=== PATIENT | female | born 1970 | race African-American/Black ===

== ENCOUNTER 2016-12-07 15:55 | Emergency (ER) | payer MEDICAID ==
[~2016-12-07] VITALS: Ht 175.3 cm; Wt 120.0 kg
[~2016-12-07 15:55] MED LIST: NAPR500T PO; PRIN10TA PO; ROBA750T PO
[2016-12-07 15:58] VITALS: BP 145/78; PULSE 64; RESP 20; TEMP 97.8; O2SAT 100
[2016-12-07] MEDS ORDERED: AMOX875T PO (16:31)
[2016-12-07] MEDS ORDERED: TRIA0.1L TOPICAL (16:31)
[2016-12-07] MEDS ORDERED: MEDR4PAK PO (16:31)
--- NOTE | 2016-12-07 16:32 | PD ---
HPI Chief Complaint: Skin Problem Time Seen by Provider: 16:30 Travel History International Travel<30 days: No Contact w/Intl Traveler<30days: No Traveled to known affect area: No History of Present Illness HPI Patient is a 46-year-old female who presents emergency evaluation of a rash as well as sinus pressure. Patient states the rash has impressive for approximately one week, she states that a chief. She denies any wheezing or shortness of breath. She also reports nasal congestion, sinus pressure. She denies any headaches, sore throat, fever, chills, nausea, vomiting, chest pain. She has an appointment with her primary doctor on but the itching wasn't tolerated so she came to the emergency department. PFSH Past Medical History Hx Anticoagulant Therapy: No Cardiovascular Problems: Yes (heart murmur) Chemotherapy: No Cerebrovascular Accident: No Diabetes: No Hypertension: Yes Respiratory: No : 4 Para: 3 Miscarriage: 1 Past Surgical History Hysterectomy: No Social History Alcohol Use: No Tobacco Use: No Substance Use: No Allergies-Medications (Allergen,Severity, Reaction): Coded Allergies: No Known Allergies (Verified , 12/07/16) Reported Meds & Prescriptions Reported Meds & Active Scripts Active Triamcinolone Topical (Triamcinolone Acetonide) 0.1% Lotn 1 Applic TOPICAL BID Medrol Dosepak (Methylprednisolone) 4 Mg Dspk 4 Mg PO DIRECTED Per Pharmacist direction Amoxicillin 875 Mg Tab 875 Mg PO BID 10 Days Robaxin (Methocarbamol) 750 Mg Tab 750 Mg PO QID PRN 2 tabs QID for 2 days, then 1 tab QID thereafter Naproxen 500 Mg Tab 500 Mg PO BID Reported Prinivil (Lisinopril) 10 Mg Tab 10 Mg PO DAILY Review of Systems Except as stated in HPI: all other systems reviewed are Neg General / Constitutional: No: Fever, Chills HENT: Positive: Rhinitis, Congestion, Other (sinus pressure), No: Headaches Cardiovascular: No: Chest Pain or Discomfort Respiratory: No: Shortness of Breath Gastrointestinal: No: Nausea, Vomiting, Abdominal Pain Skin: Positive Rash, Positive Itching, Positive Dryness Physical Exam Narrative GENERAL: Morbidly obese, Well-nourished, well-developed patient. SKIN: Warm and dry. Scattered dry, flaky, hyperpigmented macular lesions on back, bilateral thighs, abdomen, arms. HEAD: Normocephalic. Tenderness to palpation of ethmoid and maxillary sinuses. EYES: No scleral icterus. No injection or drainage. NECK: Supple, trachea midline. No JVD or lymphadenopathy. CARDIOVASCULAR: Regular rate and rhythm without murmurs, gallops, or rubs. RESPIRATORY: Breath sounds equal bilaterally. No accessory muscle use. GASTROINTESTINAL: Abdomen soft, non-tender, nondistended. MUSCULOSKELETAL: No cyanosis, or edema. BACK: Nontender without obvious deformity. No CVA tenderness. Data Data Last Documented VS Vital Signs Date Time Temp Pulse Resp B/P Pulse Ox O2 Delivery O2 Flow Rate FiO2 12/07/16 15:58 97.8 64 20 145/78 100 Room Air MDM Medical Decision Making Medical Screen Exam Complete: Yes Emergency Medical Condition: Yes Interpretation(s) Vital Signs Date Time Temp Pulse Resp B/P Pulse Ox O2 Delivery O2 Flow Rate FiO2 12/07/16 15:58 97.8 64 20 145/78 100 Room Air Differential Diagnosis Contact dermatitis versus eczema versus folliculitis versus scabies versus sinusitis versus viral URI versus allergic rhinitis Narrative Course Patient is a 46 year female who presented to emergency for evaluation of a rash as well as sinus pressure. Rash appears most consistent with nummular eczema. Discussed with patient that her symptoms regarding her sinusitis is likely viral , she was encouraged to continue symptom management however she is adamant about receiving an antibiotic. Patient encouraged to continue with Zyrtec which she only takes on an as-needed basis, she was encouraged to take it daily for best results, she was also encouraged to continue use of fluticasone nasal spray. She is encouraged to keep her appointment with Dr. Major on for follow-up. She was encouraged to return to emergency department for any new or worsening symptoms. Patient verbalized understanding of these instructions. Patient is stable for discharge. Diagnosis Primary Impression: Eczema Qualified Code: L30.9 - Eczema, unspecified type Additional Impression: Sinusitis Qualified Code: J01.90 - Acute sinusitis, recurrence not specified, unspecified location Referrals: Beverley Major MD 3 days Patient Instructions: General Instructions Additional Instructions: Use medications as directed Follow-up with Dr. Major on as scheduled Return to emergency department for any new or worsening symptoms Med/Other Pt SpecificInfo: Prescription(s) given Scripts Triamcinolone Topical 0.1% Lotn1 Applic TOPICAL BID #60 ML Ref 0 Prov:Angela Goodman 12/07/16 Methylprednisolone Dosepak (Medrol Dosepak)4 Mg Dspk4 Mg PO DIRECTED #1 DSPK Ref 0 Per Pharmacist direction Prov:Angela Goodman 12/07/16 Amoxicillin 875 Mg [id number] Mg PO BID 10 Days Ref 0 Prov:Angela Goodman 12/07/16 Disposition: 01 DISCHARGE HOME Condition: Stable Angela Goodman Dec 07, 2016 16:32
[2016-12-07] MEDS ORDERED: AMLO10 PO (16:36)
[2016-12-07] MEDS ORDERED: FLUT1SPR9 EACH NARE (16:36)
[2016-12-07] MEDS ORDERED: LISI10TA3 PO (16:36)
[2016-12-12] MEDS ORDERED: LISI10TA3 PO (10:01)
[2016-12-12] MEDS ORDERED: SELE2.5%T TOPICAL (10:10)
[2016-12-12] MEDS ORDERED: AMLO10 PO (10:12)
[2016-12-12] MEDS ORDERED: FLUT1SPR9 EACH NARE (10:12)
[2017-02-03] MEDS ORDERED: PARO12.5 PO ×2 (10:18→16:03)
[2017-02-03] MEDS ORDERED: SELE2.5%T TOPICAL (16:03)
[2017-02-06] MEDS ORDERED: PARO1TAB71 PO (15:43)
[2017-04-29] MEDS ORDERED: LISI10TA3 PO (10:13)
== END 2016-12-07 20:35 | disposition home or self-care (01) ==
LOC: NEPB 15:55
DX: L30.9 Dermatitis, unspecified (principal); J01.90 Acute sinusitis, unspecified; I10 Essential (primary) hypertension
CPT/HCPCS: 99283

== ENCOUNTER 2017-07-24 13:01 | Day surgery (SDC) | payer MEDICAID ==
[~2017-07-24 13:01] MED LIST changes: +AMLO10 PO; +FLUT1SPR9 EACH NARE; +LISI10TA3 PO; -NAPR500T PO; +PARO1TAB71 PO; -PRIN10TA PO; -ROBA750T PO; +SELE2.5%T TOPICAL; +TRIA0.1L TOPICAL
[2017-07-24] MEDS ORDERED: LIDOCAINE HCL 1% 20 ML VIAL ONE (14:28)
[2017-07-24 14:30] VITALS: BP 137/94; PULSE 59; RESP 20; TEMP 98; O2SAT 94
[2017-07-24 14:45] VITALS: BP 128/88; PULSE 71; RESP 20; O2SAT 94
--- NOTE | 2017-07-24 14:54 | RADRPT ---
EXAM DATE/TIME: 07/24/2017 13:36 [place] COMPARISON: No previous studies available for comparison. EXTERNAL COMPARISON: [facility], Ultrasound thyroid, Jul 02 2017. INDICATIONS : Left thyroid nodule. MEDICAL HISTORY : Hypertension. SURGICAL HISTORY : Gastric sleeve. ENCOUNTER: Initial ACUITY: 3 weeks PAIN SCORE: 0/10 LOCATION: Left neck ORGAN: Left thyroid lobe SPECIMENS: Four fine needle aspirate(s) submitted for pathologic evaluation. DEVICE: 22 gauge needle Post procedure scanning reveals no hematoma or other complication. The possibility does exist that the tissue obtained will be non-diagnostic. If the sample is non-bruna gnostic a repeat biopsy or surgical biopsy may need to be performed. TECHNIQUE: 1. Ultrasound guidance for needle biopsy. 2. Needle biopsy. The risks, benefits, and alternatives to ultrasound guided needle biopsy were explained to the patien t in detail including the risk of bleeding and infection. Written and verbal informed consent was ob tained. With the patient on the ultrasound table, images were obtained. Overlying skin was prepped and drape d in the usual sterile fashion and Lidocaine was utilized as a local anesthetic. A needle was advanced into the identified target and the number of specimens as above obtained and roldan bmitted for pathologic evaluation. The patient tolerated the procedure well and left the ultrasound suite in stable condition. CONCLUSION: Uncomplicated ultrasound guided needle biopsy. Malik Francois MD on July 24, 2017 at 14:52 Board Certified Radiologist. This report was verified electronically.
[2017-08-25] MEDS ORDERED: AMLO10 PO (13:05)
== END 2017-07-24 14:50 | disposition home or self-care (01) ==
LOC: HRAD 13:01 → HRIP 13:03 → EDSTATUS 13:30 → HRAD 14:50
PROVIDERS: ATTEND Nurse Practitioner Family
DX: E04.1 Nontoxic single thyroid nodule (principal); R01.1 Cardiac murmur, unspecified
CPT/HCPCS: 10022; 76942; 88172; 88173

== ENCOUNTER 2018-05-05 08:43 | Emergency (ER) | payer MEDICAID ==
[~2018-05-05] VITALS: Ht 172.7 cm; Wt 140.0 kg
[~2018-05-05 08:43] MED LIST changes: +PARO10TA3 PO; -PARO1TAB71 PO
[2018-05-05 08:47] VITALS: BP 135/90; PULSE 95; RESP 20; TEMP 97.5; O2SAT 98
[2018-05-05] MEDS ORDERED: SODIUM CHLOR 0.9% 1000 ML INJ 1,000 ML IV SCH (09:01)
[2018-05-05 09:10] VITALS: O2SAT 99
[2018-05-05] MEDS ORDERED: SODIUM CHLORIDE 0.9% FLUSH 10 ML FLUSH IV FLUSH PRN (09:15)
[2018-05-05] MEDS ORDERED: PROMETHAZINE INJ 25 MG/ML VIAL IM ONE (09:15)
[2018-05-05] MEDS ORDERED: PANT40TA3 PO (09:16)
[2018-05-05] MEDS ORDERED: LEVO25TA4 PO (09:16)
--- NOTE | 2018-05-05 09:23 | PD ---
HPI Chief Complaint: GI Complaint Time Seen by Provider: 09:01 Travel History International Travel<30 days: No Contact w/Intl Traveler<30days: No Traveled to known affect area: No History of Present Illness HPI Patient is a 48-year-old female presenting to emerge from for evaluation of nausea, vomiting and epigastric abdominal pain. Patient states it started 3 days ago, she reports that when she tries to eat or drink anything it joy and causes her to feel nauseated. She reports the pain in her abdomen is 8 out of 10, cramping and gnawing in nature. Patient states she has been to her primary doctor who provided her with a prescription for pantoprazole, she had been on omeprazole previously. She states that her primary doctor is scheduling her for an EGD but this is not scheduled yet. She has a history of gastric sleeve several years ago. She denies any change in her bowel habits, chest pain, shortness of breath, dysuria. Symptom onset was gradual, symptoms are moderate in nature. There are no alleviating factors, pain is constant and worse with food intake or fluid intake. PFSH Past Medical History Hx Anticoagulant Therapy: No Cardiovascular Problems: Yes (heart murmur) Hypertension: Yes Tetanus Vaccination: < 5 Years ?: Not : 4 Para: 3 Miscarriage: 1 Past Surgical History Abdominal Surgery: Yes (gastric sleeve) Hysterectomy: No Social History Alcohol Use: No Tobacco Use: No Substance Use: No Allergies-Medications (Allergen,Severity, Reaction): Coded Allergies: No Known Allergies (Verified Adverse Reaction, Unknown, 05/05/18) Reported Meds & Prescriptions Reported Meds & Active Scripts Active Lisinopril 10 Mg Tab 10 Mg PO BID Norvasc (Amlodipine Besylate) 10 Mg Tab 10 Mg PO DAILY Paroxetine (Paroxetine HCl) 10 Mg Tab 10 Mg PO DAILY Selenium Sulfide Topical 2.5% (Selenium Sulfide) 2.5 % Lotn 1 Applic TOPICAL BID Apply lotion to the affected area and lather with small amounts of water , leave on skin for 10 mins, then rinse thorougly. Apply every day for 7 days. Flonase Allergy Relief Children Nasal [place] (Fluticasone Nasal [place]) 50 Mcg/ Act [place] 2 [place] EACH NARE DAILY 50 mcg/spray Triamcinolone Topical (Triamcinolone Acetonide) 0.1% Lotn 1 Applic TOPICAL BID Reported Levothyroxine (Levothyroxine Sodium) 25 Mcg Tab 25 Mcg PO DAILY Pantoprazole (Pantoprazole Sodium) 40 Mg Tab 40 Mg PO DAILY Review of Systems Except as stated in HPI: all other systems reviewed are Neg Gastrointestinal: Positive: Nausea, Vomiting, Abdominal Pain, Indigestion Physical Exam Narrative GENERAL: Overweight, well-developed, alert -Cong[place]ese female. Presenting in no acute distress. SKIN: Warm and dry. HEAD: Atraumatic. Normocephalic. EYES: Pupils equal and round. No scleral icterus. No injection or drainage. ENT: No nasal bleeding or discharge. Mucous membranes pink and moist. NECK: Trachea midline. No JVD. CARDIOVASCULAR: Regular rate and rhythm. 2/6 systolic murmur. RESPIRATORY: No accessory muscle use. Clear to auscultation. Breath sounds equal bilaterally. GASTROINTESTINAL: Abdomen soft, mildly tender to palpation epigastric region, nondistended. Hepatic and splenic margins not palpable. Positive bowel sounds, no rebound, no guarding. MUSCULOSKELETAL: Extremities without clubbing, cyanosis, or edema. No obvious deformities. NEUROLOGICAL: Awake and alert. No obvious cranial nerve deficits. Motor grossly within normal limits. Five out of 5 muscle strength in the arms and legs. Normal speech. PSYCHIATRIC: Appropriate mood and affect; insight and judgment normal. Data Data Last Documented VS Vital Signs Date Time Temp Pulse Resp B/P (MAP) Pulse Ox O2 Delivery O2 Flow Rate FiO2 05/05/18 09:10 99 05/05/18 08:47 97.5 95 20 135/90 (105) Orders Orders Complete Blood Count With Diff (05/05/18 09:01) Comprehensive Metabolic Panel (05/05/18 09:01) Lipase (05/05/18 09:01) Urinalysis - C+S If Indicated (05/05/18 09:01) Iv Access Insert/Monitor (05/05/18 09:01) Ecg Monitoring (05/05/18 09:01) Oximetry (05/05/18 09:01) NPO (05/05/18 09:01) Sodium Chlor 0.9% 1000 Ml Inj (Ns 1000 M (05/05/18 09:01) Sodium Chloride 0.9% Flush (Ns Flush) (05/05/18 09:15) Promethazine Inj (Phenergan Inj) (05/05/18 09:15) Sucralfate Liq (Carafate Liq) (05/05/18 10:15) Labs Laboratory Tests Test 05/05/18 09:15 White Blood Count 4.2 TH/MM3 Red Blood Count 4.17 MIL/MM3 Hemoglobin 12.1 GM/DL Hematocrit 36.7 % Mean Corpuscular Volume 88.1 FL Mean Corpuscular Hemoglobin 29.1 PG Mean Corpuscular Hemoglobin Concent 33.1 % Red Cell Distribution Width 13.7 % Platelet Count 249 TH/MM3 Mean Platelet Volume 8.6 FL Neutrophils (%) (Auto) 54.4 % Lymphocytes (%) (Auto) 31.4 % Monocytes (%) (Auto) 7.2 % Eosinophils (%) (Auto) 5.7 % Basophils (%) (Auto) 1.3 % Neutrophils # (Auto) 2.3 TH/MM3 Lymphocytes # (Auto) 1.3 TH/MM3 Monocytes # (Auto) 0.3 TH/MM3 Eosinophils # (Auto) 0.2 TH/MM3 Basophils # (Auto) 0.1 TH/MM3 CBC Comment DIFF FINAL Differential Comment Blood Urea Nitrogen 15 MG/DL Creatinine 0.70 MG/DL Random Glucose 89 MG/DL Total Protein 7.6 GM/DL Albumin 3.8 GM/DL Calcium Level 9.0 MG/DL Alkaline Phosphatase 84 U/L Aspartate Amino Transf (AST/SGOT) 10 U/L Alanine Aminotransferase (ALT/SGPT) 22 U/L Total Bilirubin 0.4 MG/DL Sodium Level 142 MEQ/L Potassium Level 3.6 MEQ/L Chloride Level 106 MEQ/L Carbon Dioxide Level 26.0 MEQ/L Anion Gap 10 MEQ/L Estimat Glomerular Filtration Rate 108 ML/MIN Lipase 229 U/L [facility] Medical Decision Making Medical Screen Exam Complete: Yes Emergency Medical Condition: Yes Interpretation(s) Laboratory Tests Test 05/05/18 09:15 White Blood Count 4.2 TH/MM3 Red Blood Count 4.17 MIL/MM3 Hemoglobin 12.1 GM/DL Hematocrit 36.7 % Mean Corpuscular Volume 88.1 FL Mean Corpuscular Hemoglobin 29.1 PG Mean Corpuscular Hemoglobin Concent 33.1 % Red Cell Distribution Width 13.7 % Platelet Count 249 TH/MM3 Mean Platelet Volume 8.6 FL Neutrophils (%) (Auto) 54.4 % Lymphocytes (%) (Auto) 31.4 % Monocytes (%) (Auto) 7.2 % Eosinophils (%) (Auto) 5.7 % Basophils (%) (Auto) 1.3 % Neutrophils # (Auto) 2.3 TH/MM3 Lymphocytes # (Auto) 1.3 TH/MM3 Monocytes # (Auto) 0.3 TH/MM3 Eosinophils # (Auto) 0.2 TH/MM3 Basophils # (Auto) 0.1 TH/MM3 CBC Comment DIFF FINAL Differential Comment Blood Urea Nitrogen 15 MG/DL Creatinine 0.70 MG/DL Random Glucose 89 MG/DL Total Protein 7.6 GM/DL Albumin 3.8 GM/DL Calcium Level 9.0 MG/DL Alkaline Phosphatase 84 U/L Aspartate Amino Transf (AST/SGOT) 10 U/L Alanine Aminotransferase (ALT/SGPT) 22 U/L Total Bilirubin 0.4 MG/DL Sodium Level 142 MEQ/L Potassium Level 3.6 MEQ/L Chloride Level 106 MEQ/L Carbon Dioxide Level 26.0 MEQ/L Anion Gap 10 MEQ/L Estimat Glomerular Filtration Rate 108 ML/MIN Lipase 229 U/L Vital Signs Date Time Temp Pulse Resp B/P (MAP) Pulse Ox O2 Delivery O2 Flow Rate FiO2 05/05/18 09:10 99 05/05/18 08:47 97.5 95 20 135/90 (105) 98 Differential Diagnosis Gastritis versus PUD versus esophageal strictures versus metabolic abnormality versus other Narrative Course Patient is a 48-year-old female presenting to emerge for evaluation of epigastric abdominal pain, nausea and vomiting for the last 3 days. Patient is mildly tender on exam, labs ordered and pending. She is vital signs are stable. Labs reviewed, no acute findings identified. Patient reports improvement after administration of Phenergan and IV fluids. She was given Carafate which further alleviated the burning sensation. Patient was encouraged to continue to follow-up with GI for EGD. She is advised to follow-up with her primary doctor. Patient was advised to maintain a bland, easy to digest diet, avoiding acidic spicy, fried and fatty foods. She was educated on how to take the Protonix as well as Carafate. Patient verbalized understanding of these instructions. Patient was given strict return precautions. Patient verbalized understanding of discharge instructions. Discussed plan of care and exam findings with my attending physician. Diagnosis Primary Impression: Gastritis Qualified Codes: K29.70 - Gastritis, unspecified, without bleeding Referrals: Senior Data Developer Primary Care Physician Patient Instructions: Diet for Stomach Ulcers and Gastritis (GEN), Gastritis ( ED), General Instructions Additional Instructions: Follow-up with your primary doctor Follow-up with night shift supervisor for EGD as scheduled Return to emergency department immediately for any new or worsening symptoms Take medications as directed Avoid spicy, fried, acidic foods Maintain a bland, easy to digest diet Med/Other Pt SpecificInfo: Prescription(s) given Scripts Sucralfate Liq (Carafate Liq) 1 Gm/10 Ml Susp 1 GM PO QID for Duodenal ulcer for 10 Days, ML 0 Refills on empty stomach Prov: Angela Goodman 05/05/18 Disposition: 01 DISCHARGE HOME Condition: Stable Angela Goodman May 05, 2018 09:23
[2018-05-05 09:34] LABS: AUTOMATED NEUTROPHIL # 2.3 TH/MM3 (1.8-7.7); BASOPHIL # 0.1 TH/MM3 (0-0.2); BASOPHIL % 1.3 % (0.0-2.0); EOSINOPHIL # 0.2 TH/MM3 (0-0.4); EOSINOPHIL % 5.7 % (0.0-4.0); HEMATOCRIT 36.7 % (35.0-46.0); HEMOGLOBIN 12.1 GM/DL (11.6-15.3); LYMPH % 31.4 % (9.0-44.0); LYMPHOCYTE # 1.3 TH/MM3 (1.0-4.8); MEAN CELL VOLUME 88.1 FL (80.0-100.0); MEAN CORPUSCULAR HEMOGLOBIN 29.1 PG (27.0-34.0); MEAN CORPUSCULAR HGB CONC 33.1 % (32.0-36.0); MEAN PLATELET VOLUME 8.6 FL (7.0-11.0); MONO % 7.2 % (0.0-8.0); MONOCYTE # 0.3 TH/MM3 (0-0.9); NEUT % 54.4 % (16.0-70.0); PLATELET COUNT 249 TH/MM3 (150-450); RED BLOOD COUNT 4.17 MIL/MM3 (4.00-5.30); RED CELL DISTRIBUTION WIDTH 13.7 % (11.6-17.2); WHITE BLOOD COUNT 4.2 TH/MM3 (4.0-11.0)
[2018-05-05 09:50] LABS: ALBUMIN 3.8 GM/DL (3.4-5.0); AST (GOT) 10 U/L (15-37); BLOOD UREA NITROGEN 15 MG/DL (7-18); CHLORIDE 106 MEQ/L (98-107); GLOMERULAR FILTRATION RATE 108 ML/MIN (>89); GLUCOSE,RANDOM 89 MG/DL (74-106); SODIUM (NA) 142 MEQ/L (136-145)
[2018-05-05 09:51] LABS: ALT (GPT) 22 U/L (10-53)
[2018-05-05 09:53] LABS: ALKALINE PHOSPHATASE 84 U/L (45-117); TOTAL BILIRUBIN ADULT 0.4 MG/DL (0.2-1.0); TOTAL PROTEIN 7.6 GM/DL (6.4-8.2)
[2018-05-05] MEDS ORDERED: SUCRALFATE 1 GM/10 ML CUP PO ONE (10:15)
[2018-05-05] MEDS ORDERED: CARA1SUS3 PO (10:54)
== END 2018-05-05 11:15 | disposition home or self-care (01) ==
LOC: NEPD 08:43
DX: K29.70 Gastritis, unspecified, without bleeding (principal); I10 Essential (primary) hypertension; Z98.84 Bariatric surgery status
CPT/HCPCS: 80053; 83690; 85025; 96360; 96372; 99284; J2550; J7030